=== PATIENT | female | born 1940 | race Caucasian/White ===

== ENCOUNTER → 2016-08-27 | Outpatient (CLI) | payer OTHER, BC ==
[~2016-08-27] MED LIST: ATEN-173 PO; ATEN50TA8 PO; CITA10TA4 PO; HYDR25TA4 PO; MONT1TAB3 PO; PRAV20TA PO
[2016-08-27 18:16] LABS: BLOOD UREA NITROGEN 22 mg/dl (7-18)
== END | disposition home or self-care (01) ==
LOC: C.LABMFLN 10:08
PROVIDERS: ATTEND Family Medicine
DX: R91.8 Other nonspecific abnormal finding of lung field (principal)

== ENCOUNTER → 2016-09-29 | Outpatient (CLI) | payer OTHER, BC ==
--- NOTE | 2016-09-29 11:31 | DIAGNOSTIC IMAGING REPORT ---
PET/CT HISTORY: Nodule PULMONARY NODULE TECHNIQUE: PET/CT was performed from the base of the skull through the pelvis following the intravenous administration of 15.4 mCi of F18-FDG. Non-contrast CT imaging was performed over the same range without breath-hold for attenuation correction of PET images and anatomic correlation, but not for primary interpretation as it is not of standard diagnostic quality. CT DOSE: COMPARISON: None. FINDINGS: HEAD AND NECK: There is no FDG-avid disease or significant lymphadenopathy in the imaged portions of the head and the neck. CHEST: Right suprahilar mass showing intense increase in metabolic activity. Maximum mass dimensions 2.6 cm. Maximum SUV is 11.22. There is a focus of increased metabolic activity involving the right transverse process of T9. There is associated focal destructive change of a localized soft tissue component. This is consistent with a metastatic deposit area Remainder the chest is considered unremarkable. There is physiologic activity within the myocardium. ABDOMEN/PELVIS: Below the diaphragm, there is a focus of increased metabolic activity within the left hepatic lobe with SUVs of 8.6. A 1.8 cm hyperdensity is associated with this structure and is suggestive of a metastatic deposit. There is an additional small focus medial aspect anterior left hepatic lobe poorly seen on the CT study. An additional metastatic focus is considered. There is physiologic activity within the genitourinary tracts. Unremarkable activity characteristics of the bowel. No significant periaortic adenopathy is identified. There is minimal increase in activity lower lumbar spine, secondary to degenerative change. There is a small focus of increased metabolic activity left lateral pelvic sidewall felt to be secondary to atherosclerotic change of the iliac vasculature. No significant metabolically active pelvic or inguinal adenopathy is appreciated. There is physiologic activity within the urinary bladder. MUSCULOSKELETAL: There is no FDG-avid or destructive bone lesion. Other than the T9 right transverse process. IMPRESSION: 1. Right suprahilar mass demonstrating intense metabolic activity. 2. Destructive process right transverse process T9 also showing intense metabolic activity. 3. 2 left hepatic lesions demonstrating increased metabolic activity. 4. 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 09/29/2016 11:30 AM Dictated Date/Time: 09/29/2016 10:40 AM
== END | disposition home or self-care (01) ==
LOC: C.PET 08:26
PROVIDERS: ATTEND Family Medicine
DX: R91.1 Solitary pulmonary nodule (principal); R91.8 Other nonspecific abnormal finding of lung field

== ENCOUNTER → 2016-10-20 | Outpatient (CLI) | payer OTHER, BC | END | disposition home or self-care (01) | LOC: C.LABMFLN 09:30 | PROVIDERS: ATTEND Surgery | DX: C34.90 Malignant neoplasm of unspecified part of unspecified bronchus or lung (principal) ==

== ENCOUNTER → 2016-11-15 | Day surgery (SDC) | payer OTHER, BC ==
[2016-10-04 19:18] LABS: PLATELET COUNT 319 K/uL (130-400)
[2016-10-04 19:27] LABS: INR 0.9 (0.9-1.1); PARTIAL THROMBOPLASTIN RATIO 1.1
[~2016-11-15] VITALS: Ht 157.5 cm; Wt 59.0 kg
[2016-11-15 08:56] VITALS: BP 113/78; PULSE 74; TEMP 36.9; O2SAT 96; Ht 157.5 cm; Wt 59.0 kg
[2016-11-15 09:04] LABS: BASO % 0.3 %; BASO ABS # 0.02 K/uL (0-0.2); EOS % 3.7 %; IG% 0.2 %; LYMPH % 40.3 %; LYMPH ABS # 2.61 K/uL (1.2-3.4); MEAN CELL VOLUME 98.5 fL (80-100); MEAN CORPUSCULAR HEMOGLOBIN 32.3 pg (25-34); MEAN PLATELET VOLUME 8.7 fL (7.4-10.4); MONO % 11.7 %; NEUT % 43.8 %; PLATELET COUNT 326 K/uL (130-400); RED BLOOD COUNT 3.96 M/uL (4.2-5.4); WHITE BLOOD COUNT 6.48 K/uL (4.8-10.8)
[2016-11-15 09:14] LABS: COMPLETE YES; MEAN CORPUSCULAR HGB CONC 32.8 g/dl (32-36)
[2016-11-15 09:16] LABS: INR 0.9 (0.9-1.1); PARTIAL THROMBOPLASTIN RATIO 1.2
[2016-11-15 09:25] LABS: BUN/CREATININE RATIO 16.1 (10-20); CALCIUM 8.6 mg/dl (8.5-10.1); CREATININE 1.1 mg/dl (0.60-1.20); POTASSIUM 4.1 mmol/L (3.5-5.1)
--- NOTE | 2016-11-15 10:28 | Discharge Instructions ---
Discharge Instructions Procedure Procedure Date: Nov 15, 2016. Reason for visit: * To Do* Liver Mass, T9 Tranverse Mass. Discharge Discharge Date: Nov 15, 2016. Discharge Diagnosis: s/p FNA of T9 right transverse biopsy lesion Instructions Activity Recommendations: 1 Day-May resume regular activity Return to School/Work: no limitations Recommended Home Diet: No Limitations Provider Instructions: ACTIVITY RECOMMENDATIONS: * Rest today. * Resume regular activity in one day. MEDICATIONS: * May take Tylenol or Ibuprofen as needed for pain. DIET: * Resume previous diet. SPECIAL CARE INSTRUCTIONS: Call your doctor if: * Temperature above 101 degrees F. * Pain not relieved by pain medicine ordered. * Increased drainage or redness from incision. * Notify your doctor with any questions or concerns. Call your doctor or go to the nearest Emergency Department if you experience: * Increased chest pain or shortness of breath. FOLLOW UP VISIT: Follow-up with Referring Physician as scheduled. Allergies Coded Allergies: No Known Allergies (Unverified , 11/15/16) Cameron Yates Recommendations: Call your doctor if: * Temperature above 101 degrees * Pain not relieved by pain medicine ordered * There is increased drainage or redness from any incision * You have any unanswered questions or concerns. Your Doctors Instructions noted above were prepared by provider Nicho Goncalves. Patient Signature Section: Patient Instructions Signature Page Trena Henderson Patient (or Guardian) Signature/Date: I have read and understand the instructions given to me by my caregivers. Caregiver/RN/Doctor Signature/Date: The above-named patient and/or guardian has received patient instructions on this date. + Original Patient Signature Page (only) stays with chart. Please make copy for patient.
[2016-11-15 10:30] VITALS: BP 113/71; PULSE 80; TEMP 36.9; O2SAT 97
[2016-11-15 10:46] VITALS: BP 129/76; PULSE 80; O2SAT 95
--- NOTE | 2016-11-15 10:55 | DIAGNOSTIC IMAGING REPORT ---
CT GUIDED FINE NEEDLE ASPIRATION OF T9 RIGHT TRANSVERSE PROCESS LESION CT DOSE: 416.63 mGycm CLINICAL HISTORY: T9 transverse process mass. COMPARISON STUDY: PET/CT September 29, 2016. PROCEDURE: The procedure, risks and benefits were discussed with the patient. The patient agreed to the procedure and informed written consent was obtained. The procedure was performed by Dr. Goncalves following a timeout. The patient was placed prone on the CT table and axial unenhanced images through the mid to lower thoracic spine were performed. These images again demonstrated the lytic lesion within the right transverse process of T9. This lesion was targeted for fine needle aspiration. Skin overlying this lesion was prepped and draped in sterile fashion and local anesthesia was achieved with 1% lidocaine. Under intermittent CT guidance, 2 22-gauge fine needle aspirations of this lesion were performed utilizing Triny needle. Malignant cells were noted on the initial pathology review. The patient tolerated the procedure well and no immediate occasions were evident. IMPRESSION: CT-guided fine needle aspiration of the T9 right transverse process lytic lesion. Electronically signed by: Nicho Goncalves M.D. 11/15/2016 10:53 AM Dictated Date/Time: 11/15/2016 10:51 AM
[2016-11-15 11:02] VITALS: BP 137/73; PULSE 78; O2SAT 94
[2016-11-15 11:19] VITALS: BP 118/71; PULSE 89; O2SAT 97
[2016-11-15 11:33] VITALS: BP 145/81; PULSE 81; TEMP 36.7; O2SAT 97
== END | disposition home or self-care (01) ==
LOC: C.ACU 08:16
PROVIDERS: ATTEND Surgery
DX: R16.0 Hepatomegaly, not elsewhere classified (principal); C34.90 Malignant neoplasm of unspecified part of unspecified bronchus or lung; C79.51 Secondary malignant neoplasm of bone

== ENCOUNTER → 2017-05-24 | Outpatient (CLI) | payer OTHER, BC ==
[2017-05-24 13:11] LABS: HEMATOCRIT 36.8 % (37-47); MEAN CELL VOLUME 99.2 fL (80-100); MEAN CORPUSCULAR HEMOGLOBIN 32.1 pg (25-34); MEAN CORPUSCULAR HGB CONC 32.3 g/dl (32-36); MEAN PLATELET VOLUME 9.6 fL (7.4-10.4); PLATELET COUNT 252 K/uL (130-400); RED BLOOD COUNT 3.71 M/uL (4.2-5.4); WHITE BLOOD COUNT 8.57 K/uL (4.8-10.8)
[2017-05-24 13:52] LABS: ALB/GLOB RATIO 0.8 (0.9-2); ALKALINE PHOSPHATASE 85 U/L (45-117); ALT/SGPT 24 U/L (12-78); AST/SGOT 15 U/L (15-37); BLOOD UREA NITROGEN 22 mg/dl (7-18); BUN/CREATININE RATIO 24.6 (10-20); CALCIUM 8.4 mg/dl (8.5-10.1); CARBON DIOXIDE 27 mmol/L (21-32); CHLORIDE 111 mmol/L (98-107); CREATININE 0.91 mg/dl (0.60-1.20); GLUCOSE 79 mg/dl (70-99); POTASSIUM 3.7 mmol/L (3.5-5.1); SODIUM 147 mmol/L (136-145)
== END | disposition home or self-care (01) ==
LOC: C.LABMFLN 10:43
PROVIDERS: ATTEND Family Medicine
DX: C80.1 Malignant (primary) neoplasm, unspecified (principal)